=== PATIENT | male | born 1955 | race Caucasian/White ===

== ENCOUNTER 2018-01-09 15:53 | Emergency (ER) | payer OTHER ==
[~2018-01-09] VITALS: Ht 177.8 cm; Wt 92.7 kg
[~2018-01-09 15:53] MED LIST: ALTACE10 MG PO; ALTACE2.5 MG PO; ASPIRIN325 MG PO; CEFTIN500 MG PO; CHANTIX1 MG PO; FOLVITE1 M1 PO; Habitrol,Nicoderm CQ TD; LEVOTHYROXINE175 MCG PO; Levothroid,Synthroid PO; NORVASC5 MG PO; PRILOSEC20 MG PO; PriLOSEC PO; TOPROL XL50 MG PO; Toprol XL PO; WELCHOL625 MG PO; predniSONE PO
[2018-01-09 18:16] LABS: BASOPHIL (%) 0.7 % (0-1); BASOPHIL COUNT 0.1 K/uL (0-0.1); EOSINOPHIL (%) 1.9 % (0-5); EOSINOPHIL COUNT 0.2 K/uL (0-0.3); HEMATOCRIT 49.9 % (38.0-50.0); HEMOGLOBIN 17.4 G/DL (12.5-16.6); IMMATURE GRANULOCYTE (%) 0.3 % (0.0-0.7); LYMPHOCYTE (%) 38.2 % (15-42); LYMPHOCYTE COUNT 3.7 K/uL (1.0-2.8); MCH 29.7 PG (29.0-34.0); MCHC 34.9 G/DL (30.0-36.0); MCV 85.2 FL (86-99); MONOCYTE (%) 10.1 % (3-12); NEUTROPHIL (%) 48.8 % (45-76); NEUTROPHIL COUNT 4.8 K/uL (1.8-6.4); PLATELET COUNT 105 K/uL (156-360); RBC DIS.WIDTH-CV 12.8 % (11.8-14.6); RBC DIS.WIDTH-SD 39.3 % (39-53); RED BLOOD COUNT 5.86 M/uL (4.00-5.50); WHITE BLOOD COUNT 9.7 K/uL (4.1-10.2)
[2018-01-09 18:26] LABS: CHLORIDE 109 mEq/L (99-109); SODIUM 141 mEq/L (136-147)
[2018-01-09 18:27] LABS: PTT 29.3 SEC (25-37)
[2018-01-09 18:28] LABS: GLUCOSE 90 mg/dL (70-99)
[2018-01-09 18:32] LABS: GFR ESTIMATE (CALCULATED) > 59 mL/min/ (58.99-99999)
[2018-01-09 18:33] LABS: UREA NITROGEN (BUN) 13 mg/dL (9-23)
[2018-01-09 18:39] LABS: TROP-I INTERPRETATION NEGATIVE; TROPONIN-I 0.01 ng/mL (0.0-0.30)
[2018-01-09] MEDS ORDERED: FLEXERIL5 MG PO (20:10)
[2018-01-09 21:18] VITALS: BP 148/98
== END 2018-01-09 21:29 | disposition home or self-care (01) ==
LOC: EME 15:53
PROVIDERS: Emergency Medicine
DX: R51 Headache (principal); M54.2 Cervicalgia; M62.838 Other muscle spasm; F03.90 Unspecified dementia, unspecified severity, without behavioral disturbance, psychotic disturbance, mood disturbance, and anxiety; Z86.73 Personal history of transient ischemic attack (TIA), and cerebral infarction without residual deficits
CPT/HCPCS: 70450; 70496; 70498; 80048; 83605; 84484; 85025; 85610; 85730; 99281; 99285; J1200; J2765